=== PATIENT | female | born 2000 | race Caucasian/White ===

== ENCOUNTER → 2025-10-11 | Emergency (ER) | payer MEDICAID ==
[~2025-10-11] VITALS: Ht 177.8 cm; Wt 90.9 kg
[~2025-10-11] MED LIST: ESTR-95 PO; PHEN-674 PO; SPIR50TA27 PO; VENL-67 PO
[2025-10-11 17:53] VITALS: TEMP 99.9
[2025-10-11 18:25] LABS: APPEARANCE,URINE CLEAR (CLEAR); GLUCOSE, URINE (UA) NEGATIVE (NEGATIVE); LEUKOCYTE ESTERASE ,URINE NEGATIVE (NEGATIVE); NITRATE,URINE NEGATIVE (NEGATIVE); OCCULT BLOOD,URINE LARGE (NEGATIVE); SPECIFIC GRAVITIY, URINE 1.025 (1.003-1.030)
[2025-10-11 18:40] VITALS: BP 136/88; PULSE 84; RESP 18; O2SAT 99
[2025-10-11 18:44] LABS: SQUAMOUS EPITHELIAL CELL,UR Few /LPF (None Seen)
[2025-10-11] MEDS: PHENAZOPYRIDINE HCL 100 MG TABLET PO ONE (20:04)
== END | disposition still patient (30) ==
LOC: EMS 17:47
DX: R31.9 Hematuria, unspecified (principal); F64.0 Transsexualism; F12.90 Cannabis use, unspecified, uncomplicated; Z79.899 Other long term (current) drug therapy; Z79.818 Long term (current) use of other agents affecting estrogen receptors and estrogen levels
CPT/HCPCS: 81001; 99283